=== PATIENT | male | born 1990 ===

== ENCOUNTER 2016-12-03 18:01 | Emergency (ER) | payer SELFPAY ==
[2016-12-03 18:16] VITALS: BP 153/100; PULSE 86; RESP 18; O2SAT 100
[2016-12-03] MEDS ORDERED: MethylPREDNISolone 40 mg Vial IM STA (18:50)
[2016-12-03] MEDS ORDERED: MethylPREDNISolone 40 mg Vial ONE (19:01)
[2016-12-03 19:07] VITALS: TEMP 98
--- NOTE | 2016-12-03 19:36 | C.PDOC ---
History Of Present Illness 26 year old male who presents to the ER with a complaint of generalized rash and itchiness throughout his body. Patient states the itchiness constant and denies Hx of similar symptoms; he denies Hx of similar symptoms, fever, cough, sore throat, chest pain, SOB, or recent travel. Time Seen by Provider: 12/03/16 18:24 Chief Complaint (Nursing): Abnormal Skin Integrity History Per: Patient History/Exam Limitations: no limitations Onset/Duration Of Symptoms: Days Location Of Injury: Right: Arm, Neck, Left: Arm, Neck, Anterior: Abdomen, Chest , Face, Posterior: Back Quality Of Symptoms: Itching Recent travel outside of the [place]: No Past Medical History Reviewed: Historical Data, Nursing Documentation, Vital Signs Vital Signs: Last Vital Signs Temp 98 F 12/03/16 19:07 Pulse 86 12/03/16 18:14 Resp 18 12/03/16 18:14 BP 153/100 H 12/03/16 18:14 Pulse Ox 100 12/03/16 19:53 - Medical History PMH: No Chronic Diseases Surgical History: No Surg Hx Family History: States: Unknown Family Hx - Social History Hx Alcohol Use: Yes Hx Substance Use: No - Immunization History Hx Tetanus Toxoid Vaccination: No Hx Influenza Vaccination: No Hx Pneumococcal Vaccination: No Review Of Systems Except As Marked, All Systems Reviewed And Found Negative. Constitutional: Negative for: Fever, Chills ENT: Negative for: Throat Pain Cardiovascular: Negative for: Chest Pain Respiratory: Negative for: Cough, Shortness of Breath Skin: Positive for: Rash Physical Exam - Physical Exam Appears: Non-toxic Skin: Warm, Dry, Rash (Urticarial/papular rash Diffusely throughout body) Head: Atraumatic, Normacephalic Eye(s): bilateral: Normal Inspection, PERRL, EOMI Oral Mucosa: Moist Tongue: Normal Appearing, No Swelling Lips: Normal Appearing, No Swelling Throat: Normal, No Erythema, No Other (Swelling) Neck: Normal ROM Chest: Symmetrical, No Tenderness Cardiovascular: Rhythm Regular, No Friction Rub, No Murmur Respiratory: Normal Breath Sounds, No Stridor, No Wheezing Gastrointestinal/Abdominal: Soft, No Tenderness Neurological/Psych: Oriented x3, Normal Speech, Normal Cognition, Normal Motor Gait: Steady ED Course And Treatment O2 Sat by Pulse Oximetry: 100 (Room air) Pulse Ox Interpretation: Normal Medical Decision Making Medical Decision Making: Benadryl and solumedrol administered. On reevaluation, patient's condition has much improved; he shows no signs of wheezing, SOB, facial swelling, or other associated symptoms. Patient will be discharged home with instructions to follow up with PMD. Disposition - Disposition Referrals: [facility] at [facility] [Outside] Disposition: HOME/ ROUTINE Disposition Time: 19:32 Condition: GOOD Additional Instructions: Follow up with the medical doctor within 1-2 days. Return if worsened. Prescriptions: DiphenhydrAMINE [Benadryl] 25 mg PO QID #28 cap predniSONE [Prednisone] 20 mg PO BID #10 tab Instructions: Urticaria (ED) Forms: [email or web address] (Mongolian) Print Language: CITIZEN OF [place] - Clinical Impression Clinical Impression: Urticaria - Scribe Statement The provider has reviewed the documentation as recorded by the Haydenibced Neumann All medical record entries made by the Haydenibced were at my direction and personally dictated by me. I have reviewed the chart and agree that the record accurately reflects my personal performance of the history, physical exam, medical decision making, and the department course for this patient. I have also personally directed, reviewed, and agree with the discharge instructions and disposition.
== END 2016-12-03 19:43 | disposition home or self-care (01) ==
LOC: C.ER 18:01
DX: L50.9 Urticaria, unspecified (principal)
CPT/HCPCS: 96372; 99283; J2920